=== PATIENT | female | born 1990 | race Caucasian/White ===

== ENCOUNTER 2021-08-29 04:09 | Inpatient (IN) | payer BC ==
[2021-08-29 05:05] VITALS: BMI 26.5
[2021-08-29] MEDS ORDERED: Promethazine HCl 25 MG/ML VIAL IM PRN ×2 (06:19→07:25)
[2021-08-29] MEDS ORDERED: Acetaminophen 500 MG TAB PO PRN (06:19)
[2021-08-29] MEDS ORDERED: hydrALAZINE 20 MG/ML VIAL SLOW IVP PRN ×2 (06:19→21:32)
[2021-08-29] MEDS ORDERED: Ondansetron PF 4 MG/2 ML Vial IVP PRN ×3 (06:19→21:32)
[2021-08-29] MEDS ORDERED: Methylergonovine 0.2 MG/ML VIAL IM PRN (06:21)
[2021-08-29] MEDS ORDERED: Misoprostol 200 MCG TAB PR PRN (06:21)
[2021-08-29] MEDS ORDERED: Ibuprofen 800 MG TAB PO PRN (06:21)
[2021-08-29] MEDS ORDERED: Lidocaine 1% (PF) 30 ML VIAL SC PRN (06:21)
[2021-08-29] MEDS ORDERED: Carboprost 250 MCG/ML AMP IM PRN (06:21)
[2021-08-29] MEDS ORDERED: Diphenoxylate HCl/Atropine Tablet PO PRN (06:21)
[2021-08-29 06:28] LABS: Hemoglobin 12.1 g/dL (12.0-15.5); Mean Corpuscular HGB CONC 36.3 g/dL (32.0-36.0); Mean Corpuscular Hemoglobin 33.8 pg (27.0-33.0); Mean Platelet Volume 9.9 fl (7.4-10.4); Platelet Count 156 10x3/uL (150-450); RBC Distribution Width 11.9 % (11.5-14.5); Red Blood Cell (RBC) Count 3.58 10x6/uL (3.90-5.03); White Blood Cell (WBC) Count 11.2 10x3/uL (3.5-10.5)
[2021-08-29] MEDS ORDERED: Fentanyl 2 mcg/Bup 0.1% Cadd 100 ML ONE (06:45)
[2021-08-29 06:59] LABS: Syphilis Antibody Nonreactive (Nonreactive); Syphilis Antibody Index 0.04 S/CO (<1.00 Non-Reactive)
[2021-08-29 07:00] LABS: Hep B Surf Ag Non-Reactive S/CO (NonReactive)
[2021-08-29] MEDS ORDERED: Bupivacaine 0.25% HCL 30 ML VIAL ONE (07:00)
[2021-08-29 07:01] LABS: HBSAg Index 0.19 S/CO (0-0.99)
[2021-08-29] MEDS: Lactated Ringer's 1,000 ML IV SCH ×2 (07:22→15:16)
[2021-08-29] MEDS ORDERED: Naloxone HCl 0.4 mg/ml Vial IVP PRN ×2 (07:25)
[2021-08-29] MEDS ORDERED: Hydrocerin (Eucerin) Cream 120 gm Jar TOP PRN (07:25)
[2021-08-29] MEDS ORDERED: ePHEDrine Sulfate 50 MG/10 ML VIAL SLOW IVP PRN (07:25)
[2021-08-29] MEDS ORDERED: diphenhydrAMINE 50 MG/ML VIAL IVP PRN (07:25)
[2021-08-29] MEDS ORDERED: Fentanyl 2 mcg/Bupivacaine 0.1% Cassette 100 ML EPIDURAL SCH (07:30)
[2021-08-29] MEDS ORDERED: Communication Order-Pharmacy FS SCH (07:30)
[2021-08-29 07:50] LABS: SARS-CoV-2 NAA Rapid Test Not Detected (NotDetected)
[2021-08-29] MEDS ORDERED: NS w/ Oxytocin 30 units 500 ML ONE (09:29)
[2021-08-29] MEDS ORDERED: NS w/ Oxytocin 30 units 500 ML IV SCH ×2 (09:30)
[2021-08-29] MEDS: NS w/ Oxytocin 30 units 500 ML IV SCH ×2 (09:34→23:22)
[2021-08-29] MEDS: Acetaminophen 325 MG TAB PO PRN ×2 (09:48→18:36)
[2021-08-29 15:26] LABS: HIV (1/2) Antibody/Antigen Non-Reactive (NonReactive)
[2021-08-29] MEDS: Ibuprofen 800 MG TAB PO SCH (21:30)
[2021-08-29] MEDS ORDERED: Benzocaine-Menthol 82.5 ML CAN TOP PRN (21:32)
[2021-08-29] MEDS ORDERED: traMADol HCl 50 MG TAB PO PRN (21:32)
[2021-08-29] MEDS ORDERED: Boostrix 0.5 ML (Tdap) VIAL IM ONE (21:32)
[2021-08-29] MEDS ORDERED: Bisacodyl 10 MG SUPP PR PRN (21:32)
[2021-08-29] MEDS ORDERED: Milk Of Magnesia 30 ML UDCUP PO PRN (21:32)
[2021-08-30] MEDS: Ibuprofen 800 MG TAB PO SCH ×3 (05:32→20:58)
[2021-08-30] MEDS: Lactated Ringer's 1,000 ML IV SCH ×8 (07:20→14:06)
[2021-08-30] MEDS ORDERED: Lactated Ringer's 1,000 ML IV PRN (07:45)
[2021-08-30] MEDS: Docusate Calcium (SURFAK) 240 MG CAP PO SCH ×2 (08:16→20:58)
[2021-08-31] MEDS: Ibuprofen 800 MG TAB PO SCH (05:13)
[2021-08-31] MEDS: Lactated Ringer's 1,000 ML IV SCH ×2 (05:15→07:14)
[2021-08-31 07:22] VITALS: BP 114/67; TEMP 98.1
[2021-08-31] MEDS: Docusate Calcium (SURFAK) 240 MG CAP PO SCH (09:25)
== END 2021-08-31 13:15 | disposition home or self-care (01) | DRG 807 ==
LOC: CSHLD/OP 04:09 → CSHLD 04:55 → CSHPP 08-30
PROVIDERS: ADMIT Obstetrics & Gynecology; ATTEND Obstetrics & Gynecology
PROC: 10E0XZZ Delivery of Products of Conception, External Approach (ICD-10-PCS; principal; 2021-08-29)
PROC: 0KQM0ZZ Repair Perineum Muscle, Open Approach (ICD-10-PCS; 2021-08-29)
DX: O69.3XX0 Labor and delivery complicated by short cord, not applicable or unspecified (principal); Z37.0 Single live birth; Z3A.38 38 weeks gestation of pregnancy; Z20.822 Contact with and (suspected) exposure to COVID-19; O70.1 Second degree perineal laceration during delivery
CPT/HCPCS: 51702; 85027; 86780; 86850; 86900; 86901; 87340; 87389; 99285; J2590; J7120; U0002